=== PATIENT | female | born 1960 | race Caucasian/White ===

== ENCOUNTER → 2020-10-25 09:07 | Outpatient (CLI) | payer OTHER, SELFPAY ==
--- NOTE | ~2020-10-25 | XR_ITS ---
XR thoracic spine 2V DATE: 10/25/2020 09:53 INDICATION: Thoracic spine pain TECHNIQUE: Standing AP, lateral and swimmer views COMPARISON: None FINDINGS: There is osteopenia. There is mild dextroscoliosis of the mid and lower thoracic spine. No fracture or dislocation or bone destruction. The thoracic pedicles are intact. No paraspinal soft tissue thickening. There is mild degenerative spurring. IMPRESSION: Osteopenia Mild scoliosis Mild degenerative spurring Reviewed, dictated and finalized at location B.
--- NOTE | ~2020-10-25 | XR_ITS ---
XR_CERV2-3V_CR DATE: 10/25/2020 09:53 INDICATION: Neck, thoracic and lumbar spine pain TECHNIQUE: Standing AP, open-mouth, lateral, odontoid views COMPARISON: None FINDINGS: C1 and C2 are normally aligned and the odontoid process is intact. There is minimal anterolisthesis at C5-6. There is moderate degenerative disc disease at C4-5, mild degenerative disease at C5-6 and moderately severe degenerative disc disease at C6-7. There is degenerative change at the apophyseal joints throughout the cervical spine. Uncovertebral young int spurring is noted in the mid and lower cervical spine. No fracture or dislocation or locked facet or prevertebral soft tissue swelling. Bilateral cervical carotid artery calcifications are noted. IMPRESSION: Cervical spondylosis Minimal anterolisthesis at C5-6 Reviewed, dictated and finalized at Location [facility]. Reviewed, dictated and finalized at location B.
--- NOTE | ~2020-10-25 | XR_ITS ---
XR lumbar spine 2-3V DATE: 10/25/2020 09:53 INDICATION: Low back pain TECHNIQUE: Standing AP, lateral and coned lateral lumbosacral views COMPARISON: None FINDINGS: There is osteopenia. There is mild levoscoliosis. No fracture or bone destruction or spondylolisthesis. The lumbar pedicles are intact. There is minima l degenerative spurring of the lumbar spine. Lumbar and lumbosacral interspaces are relatively well p reserved. The sacroiliac joints are normal. IMPRESSION: Osteopenia Mild levoscoliosis Minimal degenerative spurring Reviewed, dictated and finalized at location B.
== END ==
PROVIDERS: PCP Family Medicine; Visit Provider Chiropractor
DX: M85.88 Other specified disorders of bone density and structure, other site (principal); M47.892 Other spondylosis, cervical region
CPT/HCPCS: 72040; 72070; 72100

== ENCOUNTER → 2020-12-14 13:53 | Outpatient (CLI) | payer OTHER, SELFPAY ==
--- NOTE | ~2020-12-14 | MR_ITS ---
EXAMINATION: MR knee LT wo con DATE: 12/14/2020 14:48 INDICATION: Acute medial meniscal tear presenting with generalized left knee pain and swelling. TECHNIQUE: Magnetic resonance imaging (MRI) of the left knee was performed without intravenous contra st. Sequences included coronal PD-weighted FSE, coronal PD-weighted FS FSE, coronal T1-weighted FSE, coronal fluid sensitive FSE STIR, sagittal T2-weighted FSE, sagittal PD-weighted FS FSE, sagittal T2 -weighted FS FSE and axial PD weighted fat saturated FSE. COMPARISON: None. FINDINGS: Medial compartment: Small likely radial tear at the lateral side of the posterior horn of the medial meniscus which appea r to remain confined to the inner third of the meniscus. Subtle irregularity to the articular cortex at the anterior margin of the weightbearing medial femoral condyle suggesting overlying otherwise in discernible chondromalacia. Lateral compartment: Complex tear of the body and posterior horn of the medial meniscus which appear small suggesting malone ge of prior partial meniscectomy. Deep chondral ulceration with irregularity to the articular cortex and minimal subarticular edema at the central aspect of the weightbearing lateral femoral condyle and the lateral third and medial margin of the lateral tibial plateau. Patellofemoral compartment: Deep chondral fissuring at the inferomedial margin of the lateral patellar facet. Deep chondral ulcer ation and fissuring along the cephalad aspect of the trochlea with underlying cortical irregularity a t the medial trochlea and at the lateral trochlea where there is also some subarticular edema. Ligaments and tendons: Complete tear of the anterior cruciate ligament. Posterior cruciate ligament is normal. The medial co llateral ligament and fibular collateral ligament complex are normal. Mild distal quadriceps tendinop athy with small enthesophytes at the patellar insertion. The patellar tendon is normal. The visualize d medial and lateral hamstring tendons as well as the iliotibial band are normal. Fluid: Moderate-sized left knee joint effusion with mild to moderate synovitis at the suprapatellar pouch. T here is also extension of fluid into the popliteal recess. No loose osteochondral bodies identified. Additional moderate synovitis within a moderate-sized Monge's cyst. There appears be fluid extravasat ion from both the Monge's cyst and from the popliteal recess with some nonloculated fluid extending c audally along the surface of the medial head of the gastrocnemius and within the popliteus muscle. Osseous/other: Alignment is normal. No fracture or pathologic marrow replacing process. IMPRESSION: 1. Complex tear of the diminutive remaining lateral meniscal body and posterior horn which may repres ent sequela of prior partial meniscectomy. 2. Small radial tear involving the inner third of the lateral side of the posterior horn of the media l meniscus. 3. Complete anterior cruciate ligament tear. 4. Lateral compartment and mild osteoarthritis in the patellofemoral compartment, both with regions o f moderate and high-grade chondromalacia. 5. Moderate-sized knee joint effusion with moderate-sized Monge's cyst. Reviewed, dictated and finalized at location A. IMPRESSION: 1. Complex tear of the diminutive remaining lateral meniscal body and posterior horn which may represent sequela of prior partial meniscectomy. 2. Small radial tear involving the inner third of the lateral side of the poste rior horn of the medial meniscus. 3. Complete anterior cruciate ligament tear. 4. Lateral compartment and mild osteoarthritis in the patellofemoral compartmen t, both with regions of moderate and high-grade chondromalacia. 5. Moderate-sized knee joint effusion wi
== END ==
PROVIDERS: PCP Family Medicine
DX: S83.242D Other tear of medial meniscus, current injury, left knee, subsequent encounter (principal); M17.32 Unilateral post-traumatic osteoarthritis, left knee; M25.462 Effusion, left knee; S83.512S Sprain of anterior cruciate ligament of left knee, sequela; M22.42 Chondromalacia patellae, left knee; M71.22 Synovial cyst of popliteal space [Baker], left knee
CPT/HCPCS: 73721

== ENCOUNTER 2023-01-17 17:11 | Emergency (ER) | payer OTHER, SELFPAY ==
[2023-01-17 17:20] VITALS: BP 131/66; PULSE 102; RESP 16; TEMP 37; O2SAT 99
--- NOTE | 2023-01-17 17:37 | ED.NAVMDI ---
HPI - Nausea/Vomiting/Diarrhea General Chief complaint: Nausea/Vomiting/Diarrhea Stated complaint: Diarrhea History of Present Illness HPI Narrative: Pt is a 62 y/o female, presents to with 9 day hx of loose stools, mucous like and today with bright red blood tinging, after traveling to [place]. She is on Otezla for RA and she contacted her PCP on Saturday regarding these stools, received an Rx for Cipro, of which she has now completed 7 doses without improvement. She reports lower pelvic cramping at times but denies focal pain, fevers or NV. She contacted her food preservation scientist who advised this may be related to the Otezla and instructed her to hold her dose for one week starting this evening. She did not contact her PCP today. She has no other complaints. Related Data Home Medications Medication Instructions Recorded Confirmed calcium carbonate 600 mg-vitamin cap PO 04/23/22 12/25/22 D3 10 mcg (400 unit) capsule fexofenadine 180 mg tablet 180 mg PO DAILY 04/23/22 12/25/22 ([facility]) meloxicam 15 mg tablet 15 mg PO DAILY 04/23/22 12/25/22 omega 1-pae-nti-fish oil 1,000 mg 1 cap PO DAILY 04/23/22 12/25/22 (120 mg-180 mg) capsule (Fish Oil) apremilast 30 mg tablet (Otezla) 30 mg PO BID 12/25/22 12/25/22 sulfasalazine 500 mg 0.5 g PO BID 12/25/22 12/25/22 tablet,delayed release Allergies Allergy/AdvReac Type Severity Reaction Status Date / Time Penicillins Allergy Unknown Verified 01/17/23 17:13 Review of Systems Gastrointestinal: Gastrointestinal: Reports as per HPI and Reports no additional gastrointestinal complaints [facility] Past Medical History Medical History Allergic rhinitis, unspecified Benign essential HTN Chronic rhinitis Inflammatory arthritis Osteopenia Personal history of malignant neoplasm of breast Prediabetes Primary osteoarthritis, unspecified hand Psoriasis Psoriatic arthritis Pure hypercholesterolemia, unspecified Tachycardia, unspecified Surgical History Surgical History 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 Social History Social History (Updated 12/25/22 @ 15:12 by Juju Ogden MA) Smoking status: Former smoker Second hand tobacco smoke exposure: No Alcohol intake: current Drinks per week: 12 Substance use: never Substance use type: does not use Lack of Transportation: No Lack of Food: Never True Current Housing: I Have Housing Concerned About Future Housing: No Difficulty Paying Gas/Electric Bills: No Difficulty Paying for Meds: No Currently Unemployed: YES Education: Master's Degree or Higher Difficulty w/ Childcare or Family Care: No Living arrangements: with family Occupation/Education: retired Gender identity (if verbalized by the patient): Female Sexual Orientation (if Verbalized by the Patient): Straight or Heterosexual Spiritual care concerns: No Exam Const: General: cooperative, healthy appearing, comfortable, no acute distress, well developed, alert, awake and Physically active Nutritional Appearance: average body habitus Orientation/consciousness: oriented to person, oriented to place and oriented to time Limitations: no limitations HENMT: Head: normal to inspection Ears: hearing grossly normal bilaterally and external ears normal Mouth: Yes Normal oral and palatal mucosa present Eyes: General: appearance normal, both eyes and all related structures Eyelids: eyelids normal Conjunctivae: conjunctivae normal Pupils: Equal, round and reactive pupils present EOM: EOMs intact bilaterally Neck: Neck: normal visual inspection, full ROM, no lymphadenopathy, no meningeal signs, trachea midline and supple Lymphatic: no lymphadenopathy noted Chest: Chest palpation & inspection: normal inspection of the chest Resp: Effort & Inspection: normal respirator
== END 2023-01-17 17:50 | disposition home or self-care (01) ==
PROVIDERS: Emergency Provider Nurse Practitioner Family; PCP Family Medicine
DX: R19.7 Diarrhea, unspecified (principal); I10 Essential (primary) hypertension; Z87.891 Personal history of nicotine dependence
CPT/HCPCS: 99211; G0463